=== PATIENT | female | born 1945 | race Caucasian/White ===

== ENCOUNTER 2017-06-12 21:17 | Emergency (ER) | payer MEDICARE | END 2017-06-12 21:40 | disposition home or self-care (01) | LOC: SCSER 21:17 | DX: J01.90 Acute sinusitis, unspecified (principal); J20.9 Acute bronchitis, unspecified; I10 Essential (primary) hypertension | CPT/HCPCS: 99283 ==

== ENCOUNTER 2017-09-24 08:14 | Outpatient (CLI) | payer MEDICARE | END 2017-09-24 08:15 | disposition home or self-care (01) | LOC: BICMAMMO 08:14 | PROVIDERS: ATTEND Obstetrics & Gynecology | DX: Z12.31 Encounter for screening mammogram for malignant neoplasm of breast (principal); Z85.3 Personal history of malignant neoplasm of breast; Z80.3 Family history of malignant neoplasm of breast | CPT/HCPCS: 77063; 77067 ==

== ENCOUNTER 2018-09-25 08:23 | Outpatient (CLI) | payer MEDICARE ==
--- NOTE | 2018-09-25 09:20 | MMO ---
Bilateral MAMMO Bilat Screen [facility]. CLINICAL HISTORY: Patient is 73 years old and is seen for screening. The patient has the following family history of breast cancer: paternal aunt, at age 70 and maternal aunt, at age 70. The patient has a history of right Mastectomy at age 44 and right Transflap at age 44. VIEWS: The views performed were: left craniocaudal with tomosynthesis and left mediolateral oblique with tomosynthesis. FILMS COMPARED: The present examination has been compared to prior imaging studies performed at [facility] on 09/23/2014, 09/22/2015, 09/23/2016 and 09/24/2017. MAMMOGRAM FINDINGS: There are benign appearing calcifications seen in the left breast. There are no suspicious masses, suspicious calcifications, or new areas of architectural distortion. IMPRESSION: THERE IS NO MAMMOGRAPHIC EVIDENCE OF MALIGNANCY. A ROUTINE FOLLOW-UP MAMMOGRAM IN 1 YEAR IS RECOMMENDED. 3BTHE RESULTS OF THIS EXAM WERE SENT TO THE PATIENT.0B ACR BI-RADS Category 2 - Benign finding MAMMOGRAPHY NOTE: 1. A negative mammogram report should not delay a biopsy if a dominant of clinically suspicious mass is present. 2. Approximately 10% to 15% of breast cancers are not detected by mammography. 3. Adenosis and dense breasts may obscure an underlying neoplasm. Reported by: EILEEN DOZIER MD Electonically Signed: [id number]
== END 2018-09-25 08:24 | disposition home or self-care (01) ==
LOC: BICMAMMO 08:23
PROVIDERS: ATTEND Obstetrics & Gynecology
DX: Z12.31 Encounter for screening mammogram for malignant neoplasm of breast (principal); Z85.3 Personal history of malignant neoplasm of breast; Z90.11 Acquired absence of right breast and nipple
CPT/HCPCS: 77063; 77067

== ENCOUNTER 2018-11-10 13:10 | Outpatient (CLI) | payer MEDICARE ==
--- NOTE | 2018-11-10 16:21 | BD ---
Exam: DEXA Bone Density 11/10/18 HISTORY: Encounter for screening for osteoporosis. COMPARISON: None. FINDINGS: Lumbar Spine: BMD (g/cm2) T-SCORE Z-SCORE L1 0.665 -3.0 -0.9 L2 0.836 -1.7 0.5 L3 0.913 -1.6 0.9 L4 0.854 -1.9 0.6 L1-L4 0.821 -2.1 0.3 Left Femoral Neck: 0.644 -1.8 0.2 Total Left Femur: 0.909 -0.3 1.4 WHO classification: Osteopenia. Impression: Osteopenia. POS: [facility]
== END 2018-11-10 13:11 | disposition home or self-care (01) ==
LOC: BICMAMMO 13:10
PROVIDERS: ATTEND Obstetrics & Gynecology
DX: Z13.820 Encounter for screening for osteoporosis (principal); M85.80 Other specified disorders of bone density and structure, unspecified site
CPT/HCPCS: 77080

== ENCOUNTER 2019-05-11 06:20 | Day surgery (SDC) | payer MEDICARE ==
[2019-05-10 12:08] VITALS: BMI 36.6
[~2019-05-11 06:20] MED LIST: EPINEPHrine 0.3 MG in Ophthalmic Irrigation Solution 500 ML IRR SCH
[2019-05-11] MEDS ORDERED: Midazolam HCl 2 mg/2 ml Vial ONE (06:36)
[2019-05-11] MEDS ORDERED: Fentanyl 100 MCG/2 ML VIAL ONE (06:36)
[2019-05-11] MEDS ORDERED: Phenylephrine 2.5% Ophth Soln 5 ML BOT ONE (07:12)
[2019-05-11] MEDS ORDERED: Cyclopentolate 1% Opth Drop 2 ML BOT ONE (07:12)
[2019-05-11] MEDS ORDERED: PROPOFOL 20 ML ONE (08:27)
[2019-05-11] MEDS ORDERED: Triamcinolone 40 MG/ML VIAL ONE (09:41)
[2019-05-11] MEDS ORDERED: Maxitrol 0.1% Opth Oint 3.5 GM TUBE ONE (09:41)
[2019-05-11] MEDS ORDERED: Indocyanine Green 25 MG/10 ML VIAL ONE (09:41)
[2019-05-11] MEDS ORDERED: Bupivacaine PF 0.75% SDV 10 ML ONE (09:41)
[2019-05-11] MEDS ORDERED: CEFAZOLIN 1 GM VIAL ONE (09:41)
[2019-05-11] MEDS ORDERED: Lidocaine 4% PF 5 ML AMP ONE (09:41)
[2019-05-11] MEDS ORDERED: Lidocaine 1% PF 5 ML VIAL ONE (09:41)
--- NOTE | 2019-05-11 10:04 | OP ---
DATE OF PROCEDURE: 05/11/2019 PREOPERATIVE DIAGNOSIS: Macular hole, right eye. POSTOPERATIVE DIAGNOSIS: Macular hole, right eye. PROCEDURES PERFORMED: 1. 25-gauge pars plana vitrectomy, right eye. 2. Internal limiting membrane removal, right eye. 3. 15% SF6 fill, right eye. ESTIMATED BLOOD LOSS: None. SPECIMENS REMOVED: None. COMPLICATIONS: None. ANESTHESIA: MAC with subtenon's block. SUMMARY OF OPERATION: The patient was identified in the preoperative holding area. The correct eye being the right eye was marked for surgery. The patient was taken to the operating room, where MAC anesthesia was induced. The right eye was then prepped and draped in the usual sterile ophthalmic fashion for surgery. A wire-lid speculum was placed. An inferonasal conjunctival peritomy was fashioned with Alin scissors for administration of subtenon's block. The block consisted of 1:1 ratio of 4% lidocaine and 0.75% Marcaine. A total of 5 mL was administered. A standard 25-gauge pars plana vitrectomy platform was fashioned with trocars placed approximately 4 mm from the limbus. The infusion was noted to be within the vitreous cavity prior to being turned on to an infusion pressure of 30 mmHg. The light pipe and microvitrector were introduced in the eye under visualization of the BIOM viewing system. A core vitrectomy was performed followed by injection of Kenalog. A gentle posterior vitreous detachment was created followed by completion of peripheral shave vitrectomy. Following vitrectomy, ICG dye was used to stain the internal limiting membrane. Using the Rishi ILM forceps, the internal limiting membrane peel was performed in a circumferential fashion about the fovea. The peel extended approximately 2 disk diameters in radius circumferentially. Following peeling, the microvitrector was reintroduced in the eye to remove any residual vitreous debris. An air-fluid exchange was performed followed by an air-gas exchange with 15% SF6. A 360-degree scleral depressed exam was performed prior to the air-fluid exchange, which revealed no defects. The cannulas were sequentially removed with suturing required of the supranasal sclerotomy with 8-0 Vicryl suture. Following suturing, all sclerotomies were noted to be gas tight. Subconjunctival Ancef and Kenalog were subsequently injected. The wire-clip lid speculum was removed followed by application of TobraDex ophthalmic ointment and a light patch and shield. The patient tolerated the procedure well and was taken to outpatient recovery in good condition. Job ID: [id number]
== END 2019-05-11 10:45 | disposition home or self-care (01) ==
LOC: SDC 06:20
PROVIDERS: ATTEND Ophthalmology Retina Specialist
PROC: 08T43ZZ Resection of Right Vitreous, Percutaneous Approach (ICD-10-PCS; principal; 2019-05-11)
PROC: 08NE3ZZ Release Right Retina, Percutaneous Approach (ICD-10-PCS; 2019-05-11)
DX: H35.341 Macular cyst, hole, or pseudohole, right eye (principal); Z79.810 Long term (current) use of selective estrogen receptor modulators (SERMs); Z79.899 Other long term (current) drug therapy
CPT/HCPCS: 67025; J0171; J0690; J2001; J2250; J2704; J3010; J3301; J3490

== ENCOUNTER 2023-07-11 08:13 | Outpatient (CLI) | payer MEDICARE | END 2023-07-11 08:14 | disposition home or self-care (01) | LOC: BICMAMMO 08:13 | PROVIDERS: ATTEND Family Medicine | DX: Z13.820 Encounter for screening for osteoporosis (principal); M85.89 Other specified disorders of bone density and structure, multiple sites; Z78.0 Asymptomatic menopausal state | CPT/HCPCS: 77080 ==